=== PATIENT | female | born 1975 | race Caucasian/White ===

== ENCOUNTER 2017-08-14 10:29 | Emergency (ER) | payer BC ==
[~2017-08-14] VITALS: Ht 157.5 cm; Wt 82.7 kg
[~2017-08-14 10:29] MED LIST: NO HOME MEDICATIONS
[2017-08-14 10:31] VITALS: BP 146/85; PULSE 89; TEMP 99.3
[2017-08-14] MEDS ORDERED: WELLBUTRIN XL300 M1 PO (10:54)
[2017-08-14] MEDS ORDERED: MOBIC15 MG PO (10:55)
[2017-08-14] MEDS ORDERED: NORCO 325 MG-51 TAB PO (10:56)
[2017-08-14] MEDS ORDERED: FLEXERIL 1010 MG/TAB PO (12:10)
== END 2017-08-14 12:28 | disposition home or self-care (01) ==
LOC: COL.ER 10:29
DX: M54.5 Low back pain (principal); F32.9 Major depressive disorder, single episode, unspecified
CPT/HCPCS: J1885; J2360

== ENCOUNTER → 2018-02-25 | Outpatient (CLI) | payer BC ==
[~2018-02-25] MED LIST changes: +FLEXERIL 1010 MG/TAB PO; +MOBIC15 MG PO; +NORCO 325 MG-51 TAB PO; +WELLBUTRIN XL300 M1 PO
== END ==
LOC: MC.RAD 13:47
DX: Z12.31 Encounter for screening mammogram for malignant neoplasm of breast (principal); N63.11 Unspecified lump in the right breast, upper outer quadrant; N64.89 Other specified disorders of breast

== ENCOUNTER → 2018-03-10 | Outpatient (CLI) | payer BC | LOC: MC.RAD 12:57 | DX: N63.31 Unspecified lump in axillary tail of the right breast (principal); N60.19 Diffuse cystic mastopathy of unspecified breast ==

== ENCOUNTER → 2018-09-15 | Outpatient (CLI) | payer BC | LOC: MC.RAD 09:49 | DX: N60.01 Solitary cyst of right breast (principal) ==

== ENCOUNTER → 2019-03-14 | Outpatient (CLI) | payer OTHER | LOC: MC.RAD 15:26 | DX: Z12.31 Encounter for screening mammogram for malignant neoplasm of breast (principal) ==

== ENCOUNTER 2019-07-03 00:33 | Emergency (ER) | payer OTHER ==
[~2019-07-03] VITALS: Ht 157.5 cm; Wt 78.2 kg
[2019-07-03 00:38] VITALS: BP 119/89
[2019-07-03] MEDS ORDERED: PEPCID 20MG TAB20 MG PO (01:47)
[2019-07-03] MEDS ORDERED: BENADRYL25 M2 PO (01:47)
[2019-07-03] MEDS ORDERED: PREDNISONE20 MG PO (01:47)
[2019-07-03 02:08] VITALS: PULSE 81; TEMP 98.4
== END 2019-07-03 02:08 | disposition home or self-care (01) ==
LOC: COL.ER 00:33
DX: L25.9 Unspecified contact dermatitis, unspecified cause (principal); Z90.710 Acquired absence of both cervix and uterus
CPT/HCPCS: J7512

== ENCOUNTER → 2020-03-20 | Outpatient (CLI) | payer OTHER ==
[~2020-03-20] MED LIST changes: +BENADRYL25 M2 PO; +PEPCID 20MG TAB20 MG PO; +PREDNISONE20 MG PO
== END ==
LOC: MC.RAD 13:52
DX: Z12.31 Encounter for screening mammogram for malignant neoplasm of breast (principal)

== ENCOUNTER → 2021-04-15 | Outpatient (CLI) | payer OTHER | LOC: MC.RAD 14:30 | DX: Z12.31 Encounter for screening mammogram for malignant neoplasm of breast (principal); N63.20 Unspecified lump in the left breast, unspecified quadrant ==

== ENCOUNTER → 2021-04-24 | Outpatient (CLI) | payer OTHER | LOC: MC.RAD 07:45 | DX: N60.02 Solitary cyst of left breast (principal) ==

== ENCOUNTER → 2021-10-27 | Outpatient (CLI) | payer OTHER | LOC: MC.RAD 07:52 | DX: N63.20 Unspecified lump in the left breast, unspecified quadrant (principal) ==

== ENCOUNTER → 2022-07-13 | Outpatient (CLI) | payer OTHER | LOC: MC.RAD 07:56 | DX: Z12.31 Encounter for screening mammogram for malignant neoplasm of breast (principal) ==

== ENCOUNTER → 2024-09-06 | Outpatient (CLI) | payer OTHER ==
[2005-09-25 15:20] VITALS: TEMP 97.4
[~2024-09-06] MED LIST changes: +WELLBUTRIN XL150 MG PO
== END ==
LOC: MC.RAD 07:22
DX: Z12.31 Encounter for screening mammogram for malignant neoplasm of breast (principal)